=== PATIENT | female | born 1965 | race American Indian/Alaskan Native ===

== ENCOUNTER 2019-04-04 07:13 | Outpatient (CLI) | payer BC ==
--- NOTE | 2019-04-04 16:57 | Magnetic Resonance Report ---
MRI LUMBAR SPINE WITHOUT CONTRAST INDICATION / CLINICAL INFORMATION: CHRONIC BACK PAIN/M54.9 DORSALGIA UNSPECIFIED. TECHNIQUE: Multisequence, multiplanar images of the lumbar spine were obtained. COMPARISON: None available. FINDINGS: ALIGNMENT: Normal alignment is maintained throughout the lumbar region. VERTEBRAE:Normal bone marrow signal intensity is maintained throughout the lumbar region. DISC MORPHOLOGY:Disc height and disc signal intensity are normally maintained throughout the lumbar r egion. VISUALIZED SPINAL CORD: Distal thoracic spinal cord, conus and nerve roots of the cauda equina all [place] ve an unremarkable appearance. Conus terminates at about the level of the inferior endplate of L1. [id number] ANALYSIS: L1-2: No significant abnormality. L2-3: No significant abnormality. L3-4: No significant abnormality. L4-5: Mild facet arthropathy. No additional abnormality. L5-S1: Facet arthropathy is noted. There is no indication of central canal stenosis or neuroforaminal narrowing. PARASPINAL SOFT TISSUES: Evaluation of the paraspinous soft tissues reveals no definite abnormalities . IMPRESSION: 1. No focal disc herniation, spinal canal stenosis or nerve root compression. 2. Facet arthritic changes L4-5 and L5-S1. Signer Name: Derik Spangler MD Signed: 04/04/2019 4:53 PM Workstation Name: [email or web address]
--- NOTE | 2019-04-04 17:02 | Magnetic Resonance Report ---
MRI THORACIC SPINE WITHOUT CONTRAST INDICATION / CLINICAL INFORMATION: CHRONIC BACK PAIN/ TECHNIQUE: Multisequence, multiplanar images of the thoracic spine were obtained. COMPARISON: None available. FINDINGS: ALIGNMENT: Normal thoracic kyphosis without significant scoliosis. VERTEBRAE:Normal marrow signal and vertebral body height for age. VISUALIZED SPINAL CORD: No significant abnormality. INTERVERTEBRAL DISCS: Minimal spondylotic changes are seen at T5-T6, T7-T8, T8-T9 (right side), T9-T1 0 and T10 and T11 (left side). DEGENERATIVE FINDINGS: No significant degenerative findings. PARASPINAL SOFT TISSUES: No significant abnormality. ADDITIONAL FINDINGS: None. IMPRESSION: Normal thoracic spinal cord Spondylotic changes in the mid and lower thoracic spine as described about Signer Name: Charlie Gaming MD Signed: 04/04/2019 4:58 PM Workstation Name: [id number]
== END 2019-04-04 07:14 | disposition home or self-care (01) ==
LOC: MRI 07:13
PROVIDERS: ATTEND Family Medicine
DX: M47.814 Spondylosis without myelopathy or radiculopathy, thoracic region (principal); M47.816 Spondylosis without myelopathy or radiculopathy, lumbar region; K21.9 Gastro-esophageal reflux disease without esophagitis; Z90.710 Acquired absence of both cervix and uterus
CPT/HCPCS: 72146; 72148